=== PATIENT | male | born 1955 | race American Indian/Alaskan Native ===

== ENCOUNTER 2019-12-29 19:42 | Emergency (ER) | payer BC ==
[2019-12-29] MEDS ORDERED: cloNIDine 0.1 MG TAB PO ONE (21:01)
--- NOTE | 2019-12-29 21:04 | Emergency Department Report ---
ED General Adult HPI - General Chief complaint: High BP Stated complaint: HIGH B/P Time Seen by Provider: 12/29/19 20:55 Source: patient Mode of arrival: Ambulatory Limitations: No Limitations - History of Present Illness Initial comments: Patient is a 64 years old pleasant male who has no significant past medical history. Patient presented to the ER complaining of headache and high blood pressure. Patient stated that he never been diagnosed with blood pressure before. Patient stated that he saw his primary care physician few days ago for physical and he was given prescription for headache which is Fioricet. Patient denies any weakness, numbness or tingling sensation. No bowel or bladder incontinence. No neck pain. Patient also denies any chest pain or shortness of breath. Patient found to have a blood pressure of 193/111. Patient given clonidine 0.2mg p.o. - Related Data Previous Rx's Medication Instructions Recorded Last Taken Type amLODIPine [Norvasc] 5 mg PO DAILY #30 tab 12/30/19 Unknown Rx ED Review of Systems ROS: Stated complaint: HIGH B/P Other details as noted in HPI Comment: All other systems reviewed and negative Constitutional: denies: chills, fever Respiratory: denies: cough, shortness of breath, SOB with exertion, SOB at rest, wheezing Cardiovascular: denies: chest pain, palpitations Gastrointestinal: denies: abdominal pain, nausea, vomiting, diarrhea, constipation, hematemesis, melena Musculoskeletal: denies: back pain Neurological: headache. denies: weakness, numbness, paresthesias, confusion, abnormal gait ED Past Medical Hx - Medications Home Medications: Home Medications Medication Instructions Recorded Confirmed Last Taken Type amLODIPine [Norvasc] 5 mg PO DAILY #30 tab 12/30/19 Unknown Rx ED Physical Exam - General Limitations: No Limitations General appearance: alert, in no apparent distress - Head Head exam: Present: atraumatic, normocephalic, normal inspection - Eye Eye exam: Present: normal appearance - ENT ENT exam: Present: normal exam, normal orophraynx, mucous membranes moist - Neck Neck exam: Present: normal inspection, full ROM. Absent: tenderness, meningismus, lymphadenopathy, thyromegaly - Respiratory Respiratory exam: Present: normal lung sounds bilaterally - Cardiovascular Cardiovascular Exam: Present: regular rate, normal rhythm, normal heart sounds - GI/Abdominal GI/Abdominal exam: Present: soft, normal bowel sounds. Absent: distended, tenderness, guarding, rebound, rigid, organomegaly, mass, bruit, pulsatile mass, hernia - Extremities Exam Extremities exam: Present: normal inspection, full ROM, normal capillary refill. Absent: tenderness, pedal edema, joint swelling, calf tenderness - Back Exam Back exam: Present: normal inspection, full ROM. Absent: CVA tenderness (R), CVA tenderness (L), muscle spasm, paraspinal tenderness, vertebral tenderness - Neurological Exam Neurological exam: Present: alert, oriented X3, CN II-XII intact, normal gait, reflexes normal. Absent: abnormal gait, motor sensory deficit - Psychiatric Psychiatric exam: Present: normal mood - Skin Skin exam: Present: warm, intact, normal color ED Course Vital Signs 12/29/19 12/29/19 12/29/19 19:48 22:00 22:09 Temperature 97.8 F Pulse Rate 68 60 Respiratory 18 18 Rate Blood Pressure 193/111 175/96 O2 Sat by Pulse 98 99 Oximetry 12/29/19 12/29/19 12/29/19 22:16 22:30 22:46 Temperature Pulse Rate Respiratory Rate Blood Pressure 175/96 175/96 175/96 O2 Sat by Pulse 98 99 98 Oximetry 12/29/19 12/29/19 12/29/19 23:00 23:16 23:30 Temperature Pulse Rate Respiratory Rate Blood Pressure 175/96 189/97 175/96 O2 Sat by Pulse 99 100 99 Oximetry 12/29/19 12/30/19 23:46 00:31 Temperature Pulse Rate 63 Respiratory Rate Blood Pressure 185/95 165/89 O2 Sat by Pulse 98 Oximetry ED Medical Decision Making - Lab Data Result diagrams: 12/29/19 21:14 12/29/19 21:14 - Medical Decision Making Patient is a 64 years old pleasant male who has no significant past medical history. Patient presented to the ER complaining of headache and high blood pressure. Patient stated that he never been diagnosed with blood pressure before. Patient stated that he saw his primary care physician few days ago for physical and he was given prescription for headache which is Fioricet. Patient denies any weakness, numbness or tingling sensation. No bowel or bladder incontinence. No neck pain. Patient also denies any chest pain or shortness of breath. Patient found to have a blood pressure of 193/111. Patient given clonidine 0.2mg p.o. Patient received clonidine 0.2 mg p.o. and his blood pressure went down to 165/89. Patient stated that his headache resolved. Patient given hydralazine 25 mg p.o. and a prescription for Norvasc 5 mg and advised to follow-up with his primary care physician in the next 2 to 3 days and to return to the ER if he develop any new symptoms. Critical care attestation.: If time is entered above; I have spent that time in minutes in the direct care o f this critically ill patient, excluding procedure time. ED Disposition Clinical Impression: Malignant hypertension Disposition: DC-01 TO HOME OR SELFCARE Is pt being admited?: No Condition: Stable Instructions: Hypertension (ED) Prescriptions: amLODIPine [Norvasc] 5 mg PO DAILY #30 tab Referrals: STEF FIELD JR, MD [Primary Care Provider] - 3-5 Days
[2019-12-29 21:39] LABS: Basophils # (Auto) 0.1 K/mm3 (0.0-0.1); Basophils % (Auto) 0.9 % (0.0-1.8); Eosinophils # (Auto) 0.2 K/mm3 (0.0-0.4); Eosinophils % (Auto) 2.2 % (0.0-4.3); Hematocrit 45.5 % (35.5-45.6); Hemoglobin 15.2 gm/dl (11.8-15.2); Lymphocytes # (Auto) 3.4 K/mm3 (1.2-5.4); Lymphocytes % (Auto) 37.3 % (13.4-35.0); Mean Corpuscular HGB Conc 33 % (32-34); Mean Corpuscular Volume 80 fl (84-94); Platelet Count 209 K/mm3 (140-440); Red Cell Distribution Width 15.6 % (13.2-15.2)
[2019-12-29 21:57] LABS: BUN/Creatinine Ratio 24; Blood Urea Nitrogen 24 mg/dL (9-20); Calcium 8.7 mg/dL (8.4-10.2); Hemolysis Index 20
[2019-12-30] MEDS ORDERED: hydrALAZINE 25 MG TAB PO ONE (00:06)
[2019-12-30 00:32] VITALS: BP 165/89
== END 2019-12-30 01:10 | disposition home or self-care (01) ==
LOC: ED 19:42
DX: I10 Essential (primary) hypertension (principal); Z79.899 Other long term (current) drug therapy
CPT/HCPCS: 36415; 80048; 85025; 99283